=== PATIENT | female | born 1945 | race Caucasian/White ===

== ENCOUNTER 2016-10-02 14:11 | Emergency (ER) | payer OTHER ==
[~2016-10-02] VITALS: Ht 152.4 cm; Wt 56.0 kg
[~2016-10-02 14:11] MED LIST: ACCUPRIL10 MG PO; ADVAIR HFA120 INHALA IH; ALPRAZOLAM0.25 MG PO; ANALGESIC325 MG PO; ASPIR-MOX 325325 M1 PO; ASPIRIN325 MG PO; AZITHROMYCIN500 M1 PO; CALCIUM 500 +1 EACH PO; CENTRUM SILVER1 EAC3 PO; CIPRO500 MG PO; DUONEB 2.5-0.5 M3 ML AEROSOL; DUONEB 2.5-0.5 M3 ML IH; ECOTRIN325 MG PO; FLEXERIL10 MG PO; GABAPENTIN300 MG PO; GLUCOPHAGE500 MG PO; Glucophage PO; INDOCIN25 MG PO; LISINOPRIL10 MG PO; METFORMIN HCL500 MG PO; MOTRIN600 MG PO; MOTRIN800 MG PO; NORCO 5/3251 TABLET PO; PERCOCET 5/31 TABLET PO; PRAVACHOL80 MG PO; PRAVASTATIN SOD80 MG PO; PREDNISONE10 MG PO; PREDNISONE50 MG PO; THERAGRAN1 TABLET PO; TYLENOL WITH C1 EACH PO; VENTOLIN HFA18 GM IH; ZANTAC150 MG PO; ZANTAC300 MG PO; ZITHROMAX250 MG PO
[2016-10-02] MEDS ORDERED: DUONEB 2.5-0.5 M3 ML AEROSOL (15:10)
[2016-10-02 15:53] LABS: HEMATOCRIT 45.2 % (36.0-46.0); MCH 30.6 PG (29.0-34.0); MCHC 34.3 G/DL (30.0-36.0); MCV 89.3 FL (83-99); MEAN PLAT.VOLUME 10.4 uM^3 (9.5-12.4); PLATELET COUNT 179 K/uL (156-360); RBC DIS.WIDTH-CV 13.2 % (11.8-14.6); RED BLOOD COUNT 5.06 M/uL (3.80-5.20); WHITE BLOOD COUNT 10.6 K/uL (4.1-10.2)
[2016-10-02 16:06] LABS: CHLORIDE 107 mEq/L (99-109); POTASSIUM 3.9 mEq/L (3.7-5.4); SODIUM 137 mEq/L (136-147)
[2016-10-02 16:09] LABS: GLUCOSE 201 mg/dL (70-99)
[2016-10-02 16:10] LABS: ANION GAP 10 MEQ/L (2-14)
[2016-10-02 16:11] LABS: TOTAL BILIRUBIN 0.3 mg/dL (0.0-1.0)
[2016-10-02 16:12] LABS: ALKALINE PHOSPHATASE 73 IU/L (3-129); GFR ESTIMATE (CALCULATED) > 59 mL/min/
[2016-10-02 16:13] LABS: UREA NITROGEN (BUN) 14 mg/dL (9-23)
[2016-10-02 16:21] LABS: TROP-I INTERPRETATION NEGATIVE; TROPONIN-I < 0.01 ng/mL (0.0-0.30)
[2016-10-02 16:24] LABS: ADD MIUA? YES; BILIRUBIN NEGATIVE; BLOOD NEGATIVE; COLOR YELLOW ((YELLOW)); GLUCOSE (STRIP) 50; KETONES NEGATIVE; LEUKOCYTES LARGE; NITRITE NEGATIVE; PROTEIN (STRIP) NEGATIVE; SPECIFIC GRAVITY 1.018 (1.000-1.030); UROBILINOGEN 0.2 MG/DL (0.2-1.0)
[2016-10-02 16:29] LABS: LIPASE 18 U/L (1.0-51.0)
[2016-10-02 16:33] LABS: BACTERIA RARE /HPF; EPITHELIAL CELLS 2+ /HPF; MUCUS TRACE /LPF; RED BLOOD CELLS 20-30 /HPF (0-5); UCUL ADDED? YES; UNCLASSIFIED CRYSTALS 1+ /HPF; WHITE BLOOD CELLS TNTC /HPF (0-5)
[2016-10-02] MEDS ORDERED: BACTRIM,SEPT1 TABLET PO (17:29)
[2016-10-02 17:56] VITALS: BP 126/69
== END 2016-10-02 17:57 | disposition home or self-care (01) ==
LOC: EME 14:11
PROVIDERS: Nurse Practitioner Family
DX: K59.00 Constipation, unspecified (principal); N39.0 Urinary tract infection, site not specified; Z87.442 Personal history of urinary calculi; K21.9 Gastro-esophageal reflux disease without esophagitis; J45.909 Unspecified asthma, uncomplicated; I10 Essential (primary) hypertension; E78.5 Hyperlipidemia, unspecified; I25.2 Old myocardial infarction; F17.200 Nicotine dependence, unspecified, uncomplicated
CPT/HCPCS: 71020; 74177; 80053; 81003; 83690; 84484; 85027; 87086; 93005; 99281; 99284; J3010; J7030

== ENCOUNTER 2016-10-05 15:18 | Emergency (ER) | payer OTHER ==
[~2016-10-05] VITALS: Ht 152.4 cm; Wt 52.6 kg
[~2016-10-05 15:18] MED LIST changes: +BACTRIM,SEPT1 TABLET PO
[2016-10-05 16:50] LABS: BASOPHIL COUNT 0.1 K/uL (0-0.1); EOSINOPHIL (%) 1.4 % (0-5); EOSINOPHIL COUNT 0.1 K/uL (0-0.3); HEMATOCRIT 43.1 % (36.0-46.0); IMMATURE GRANULOCYTE (%) 0.3 % (0.0-0.7); INSTRUMENT ABS NEUTROPHIL CT 7.6 K/uL; LYMPHOCYTE COUNT 1.6 K/uL (1.0-2.8); MCH 30.5 PG (29.0-34.0); MCHC 33.9 G/DL (30.0-36.0); MEAN PLAT.VOLUME 10.6 uM^3 (9.5-12.4); MONOCYTE (%) 4.7 % (3-12); MONOCYTE COUNT 0.5 K/uL (0-0.8); NEUTROPHIL (%) 77.1 % (45-76); NEUTROPHIL COUNT 7.6 K/uL (1.8-6.4); PLATELET COUNT 168 K/uL (156-360); RBC DIS.WIDTH-CV 13.4 % (11.8-14.6); RBC DIS.WIDTH-SD 44.4 % (39-53); RED BLOOD COUNT 4.79 M/uL (3.80-5.20); WHITE BLOOD COUNT 9.9 K/uL (4.1-10.2)
[2016-10-05 16:59] LABS: CHLORIDE 104 mEq/L (99-109); POTASSIUM 4.2 mEq/L (3.7-5.4); SODIUM 135 mEq/L (136-147)
[2016-10-05 17:01] LABS: GLUCOSE 203 mg/dL (70-99)
[2016-10-05 17:02] LABS: ANION GAP 7 MEQ/L (2-14)
[2016-10-05 17:05] LABS: GFR ESTIMATE (CALCULATED) > 59 mL/min/; UREA NITROGEN (BUN) 8 mg/dL (9-23)
[2016-10-05 17:12] LABS: TROP-I INTERPRETATION NEGATIVE; TROPONIN-I < 0.01 ng/mL (0.0-0.30)
[2016-10-05 18:33] LABS: ADD MIUA? YES; BILIRUBIN NEGATIVE; BLOOD SMALL; COLOR YELLOW ((YELLOW)); GLUCOSE (STRIP) 50; KETONES NEGATIVE; LEUKOCYTES LARGE; NITRITE NEGATIVE; PROTEIN (STRIP) 30; SPECIFIC GRAVITY 1.006 (1.000-1.030); UROBILINOGEN 0.2 MG/DL (0.2-1.0)
[2016-10-05 18:52] LABS: BACTERIA RARE /HPF; BUDDING YEAST 2+; EPITHELIAL CELLS 3+ /HPF; MUCUS TRACE /LPF; RED BLOOD CELLS 20-30 /HPF (0-5); WHITE BLOOD CELLS TNTC /HPF (0-5)
[2016-10-05] MEDS ORDERED: NORCO 5/3251 TABLET PO (19:07)
[2016-10-05] MEDS ORDERED: LEVAQUIN500 MG PO (19:07)
[2016-10-05 19:33] VITALS: BP 143/76
== END 2016-10-05 19:33 | disposition home or self-care (01) ==
LOC: EME 15:18
PROVIDERS: Emergency Medicine
DX: N39.0 Urinary tract infection, site not specified (principal); K21.9 Gastro-esophageal reflux disease without esophagitis; E78.5 Hyperlipidemia, unspecified; I10 Essential (primary) hypertension; I25.2 Old myocardial infarction; F17.200 Nicotine dependence, unspecified, uncomplicated; Z87.442 Personal history of urinary calculi
CPT/HCPCS: 80048; 81003; 84484; 85025; 99281; 99284; J1885; J7030

== ENCOUNTER 2017-01-14 11:56 | Emergency (ER) | payer OTHER ==
[~2017-01-14] VITALS: Ht 152.4 cm; Wt 56.6 kg
[~2017-01-14 11:56] MED LIST changes: +LEVAQUIN500 MG PO
[2017-01-14 12:56] LABS: ADD MIUA? YES; BILIRUBIN NEGATIVE; BLOOD SMALL; GLUCOSE (STRIP) >=500; KETONES NEGATIVE; LEUKOCYTES LARGE; NITRITE NEGATIVE; PROTEIN (STRIP) NEGATIVE; SPECIFIC GRAVITY 1.012 (1.000-1.030); UROBILINOGEN 0.2 MG/DL (0.2-1.0)
[2017-01-14 12:57] LABS: COLOR DK YELLOW ((YELLOW))
[2017-01-14 13:03] LABS: BACTERIA RARE /HPF; EPITHELIAL CELLS 1+ /HPF; HYALINE CASTS 0-5 /LPF; MUCUS TRACE /LPF; RED BLOOD CELLS 15-20 /HPF (0-5); UCUL ADDED? YES; UNCLASSIFIED CASTS 0-5 /LPF; WHITE BLOOD CELLS 30-40 /HPF (0-5)
[2017-01-14 13:09] LABS: HEMATOCRIT 43.1 % (36.0-46.0); MCH 31.1 PG (29.0-34.0); MCHC 33.9 G/DL (30.0-36.0); MCV 91.7 FL (83-99); MEAN PLAT.VOLUME 10.2 uM^3 (9.5-12.4); PLATELET COUNT 193 K/uL (156-360); RBC DIS.WIDTH-SD 44.1 % (39-53); WHITE BLOOD COUNT 9.8 K/uL (4.1-10.2)
[2017-01-14 13:18] LABS: CHLORIDE 107 mEq/L (99-109); POTASSIUM 4.2 mEq/L (3.7-5.4); SODIUM 138 mEq/L (136-147)
[2017-01-14 13:20] LABS: GLUCOSE 190 mg/dL (70-99)
[2017-01-14 13:21] LABS: ANION GAP 9 MEQ/L (2-14)
[2017-01-14 13:22] LABS: TOTAL BILIRUBIN 0.3 mg/dL (0.0-1.0)
[2017-01-14 13:23] LABS: ALKALINE PHOSPHATASE 87 IU/L (3-129)
[2017-01-14 13:24] LABS: GFR ESTIMATE (CALCULATED) > 59 mL/min/
[2017-01-14 13:25] LABS: UREA NITROGEN (BUN) 13 mg/dL (9-23)
[2017-01-14] MEDS ORDERED: KEFLEX500 MG PO (17:36)
[2017-01-14 18:00] VITALS: BP 102/82
[2017-01-14 19:14] LABS: LIPASE 33 U/L (1.0-51.0)
== END 2017-01-14 18:00 | disposition home or self-care (01) ==
LOC: EME 11:56
DX: N39.0 Urinary tract infection, site not specified (principal); I70.0 Atherosclerosis of aorta; E11.9 Type 2 diabetes mellitus without complications; Z79.84 Long term (current) use of oral hypoglycemic drugs; F17.200 Nicotine dependence, unspecified, uncomplicated; Z71.6 Tobacco abuse counseling; J45.909 Unspecified asthma, uncomplicated; K21.9 Gastro-esophageal reflux disease without esophagitis; I25.2 Old myocardial infarction; F32.9 Major depressive disorder, single episode, unspecified; F41.9 Anxiety disorder, unspecified; Z87.442 Personal history of urinary calculi; Z95.5 Presence of coronary angioplasty implant and graft
CPT/HCPCS: 74174; 80053; 81003; 83690; 85027; 87086; 99281; 99285; J7030

== ENCOUNTER 2017-05-11 00:09 | Emergency (ER) | payer OTHER ==
[~2017-05-11] VITALS: Ht 152.4 cm; Wt 54.8 kg
[~2017-05-11 00:09] MED LIST changes: +KEFLEX500 MG PO
[2017-05-11 00:50] LABS: BASOPHIL (%) 0.6 % (0-1); BASOPHIL COUNT 0.1 K/uL (0-0.1); EOSINOPHIL COUNT 0.3 K/uL (0-0.3); HEMATOCRIT 44.8 % (36.0-46.0); HEMOGLOBIN 15.5 G/DL (11.9-15.5); IMMATURE GRANULOCYTE (%) 0.3 % (0.0-0.7); LYMPHOCYTE COUNT 2.6 K/uL (1.0-2.8); MCH 31.1 PG (29.0-34.0); MCHC 34.6 G/DL (30.0-36.0); MCV 89.8 FL (83-99); MONOCYTE COUNT 0.6 K/uL (0-0.8); NEUTROPHIL (%) 75.1 % (45-76); NEUTROPHIL COUNT 10.6 K/uL (1.8-6.4); PLATELET COUNT 185 K/uL (156-360); RBC DIS.WIDTH-CV 12.5 % (11.8-14.6); RBC DIS.WIDTH-SD 41.2 % (39-53); RED BLOOD COUNT 4.99 M/uL (3.80-5.20); WHITE BLOOD COUNT 14.2 K/uL (4.1-10.2)
[2017-05-11 01:00] LABS: ALBUMIN 3.8 g/dL (3.2-4.8); CHLORIDE 103 mEq/L (99-109); POTASSIUM 3.4 mEq/L (3.7-5.4); SODIUM 137 mEq/L (136-147)
[2017-05-11 01:02] LABS: GLUCOSE 200 mg/dL (70-99)
[2017-05-11 01:03] LABS: TOTAL PROTEIN 6.6 g/dL (6.4-8.3)
[2017-05-11 01:04] LABS: TOTAL BILIRUBIN 0.3 mg/dL (0.0-1.0)
[2017-05-11 01:06] LABS: ALKALINE PHOSPHATASE 97 IU/L (3-129); CREATININE 0.8 mg/dL (0.6-1.3); GFR ESTIMATE (CALCULATED) > 59 mL/min/
[2017-05-11 01:07] LABS: UREA NITROGEN (BUN) 12 mg/dL (9-23)
[2017-05-11 01:08] LABS: AST (GOT) 16 IU/L (2-34)
[2017-05-11 01:09] LABS: ALT (GPT) 18 IU/L (3-49); LIPASE 10 U/L (1.0-51.0)
[2017-05-11] MEDS ORDERED: LEVAQUIN750 MG PO (01:52)
[2017-05-11] MEDS ORDERED: FLAGYL500 MG PO (01:52)
[2017-05-11] MEDS ORDERED: ZOFRAN4 MG PO (01:52)
[2017-05-11] MEDS ORDERED: PERCOCET 5/31 TABLET PO (01:52)
[2017-05-11 01:54] LABS: APPEARANCE CLEAR ((CLEAR)); BILIRUBIN NEGATIVE; BLOOD SMALL; COLOR AMBER ((YELLOW)); GLUCOSE (STRIP) NEGATIVE; KETONES NEGATIVE; LEUKOCYTES MODERATE; NITRITE POSITIVE; PROTEIN (STRIP) NEGATIVE; SPECIFIC GRAVITY 1.006 (1.000-1.030)
[2017-05-11 01:58] LABS: BACTERIA NONE SEEN /HPF; EPITHELIAL CELLS 1+ /HPF; MUCUS TRACE /LPF; UCUL ADDED? YES
[2017-05-11 02:42] VITALS: BP 168/95
== END 2017-05-11 02:43 | disposition home or self-care (01) ==
LOC: EME 00:09
PROVIDERS: Emergency Medicine
DX: K57.32 Diverticulitis of large intestine without perforation or abscess without bleeding (principal); I71.4 Abdominal aortic aneurysm, without rupture; I10 Essential (primary) hypertension; E78.5 Hyperlipidemia, unspecified; E11.9 Type 2 diabetes mellitus without complications; Z79.84 Long term (current) use of oral hypoglycemic drugs; I25.2 Old myocardial infarction; Z95.5 Presence of coronary angioplasty implant and graft; Z79.82 Long term (current) use of aspirin; Z87.442 Personal history of urinary calculi; F17.200 Nicotine dependence, unspecified, uncomplicated
CPT/HCPCS: 74177; 80053; 81003; 83605; 83690; 85025; 87086; 99281; 99284; J2405; J3010; J7030

== ENCOUNTER 2017-07-15 09:59 | Inpatient (IN) | payer OTHER ==
[~2017-07-15] VITALS: Ht 149.9 cm; Wt 49.5 kg
[~2017-07-15 09:59] MED LIST changes: +FLAGYL500 MG PO; +GLUCOPHAGE1000 MG PO; +LEVAQUIN750 MG PO; -LISINOPRIL10 MG PO; -METFORMIN HCL500 MG PO; +PRINIVIL20 MG PO; +ZOFRAN4 MG PO
[2017-07-15 10:26] LABS: CARBON DIOXIDE (BICARBONATE) 24.1 MEQ/L (20-31)
[2017-07-15 10:34] LABS: BASOPHIL (%) 0.9 % (0-1); BASOPHIL COUNT 0.1 K/uL (0-0.1); EOSINOPHIL (%) 1.5 % (0-5); EOSINOPHIL COUNT 0.2 K/uL (0-0.3); HEMATOCRIT 48.5 % (36.0-46.0); HEMOGLOBIN 17.1 G/DL (11.9-15.5); IMMATURE GRANULOCYTE (%) 0.3 % (0.0-0.7); LYMPHOCYTE (%) 24.1 % (15-42); LYMPHOCYTE COUNT 2.8 K/uL (1.0-2.8); MCH 31.1 PG (29.0-34.0); MCHC 35.3 G/DL (30.0-36.0); MCV 88.3 FL (83-99); MONOCYTE (%) 5.5 % (3-12); MONOCYTE COUNT 0.6 K/uL (0-0.8); NEUTROPHIL (%) 67.7 % (45-76); NEUTROPHIL COUNT 7.8 K/uL (1.8-6.4); PLATELET COUNT 205 K/uL (156-360); RBC DIS.WIDTH-CV 13.4 % (11.8-14.6); RBC DIS.WIDTH-SD 43.2 % (39-53); RED BLOOD COUNT 5.49 M/uL (3.80-5.20); WHITE BLOOD COUNT 11.5 K/uL (4.1-10.2)
[2017-07-15 10:35] LABS: ALBUMIN 4.4 g/dL (3.2-4.8); CHLORIDE 98 mEq/L (99-109); POTASSIUM 4.6 mEq/L (3.7-5.4); SODIUM 135 mEq/L (136-147)
[2017-07-15 10:36] LABS: MAGNESIUM 1.9 mg/dL (1.3-2.7)
[2017-07-15 10:38] LABS: TOTAL PROTEIN 7.4 g/dL (6.4-8.3)
[2017-07-15 10:40] LABS: TOTAL BILIRUBIN 0.6 mg/dL (0.0-1.0)
[2017-07-15 10:41] LABS: ALKALINE PHOSPHATASE 128 IU/L (3-129)
[2017-07-15 10:42] LABS: CREATININE 1.2 mg/dL (0.6-1.3); GFR ESTIMATE (CALCULATED) 47 mL/min/
[2017-07-15 10:43] LABS: AST (GOT) 14 IU/L (2-34); UREA NITROGEN (BUN) 20 mg/dL (9-23)
[2017-07-15 10:44] LABS: ALT (GPT) 23 IU/L (3-49); GLUCOSE 733 mg/dL (70-99)
[2017-07-15 10:55] LABS: TROP-I INTERPRETATION NEGATIVE; TROPONIN-I < 0.01 ng/mL (0.0-0.30)
[2017-07-15 12:00] LABS: APPEARANCE SL.HAZY ((CLEAR)); BILIRUBIN NEGATIVE; BLOOD NEGATIVE; COLOR YELLOW ((YELLOW)); GLUCOSE (STRIP) >=500; KETONES 5; LEUKOCYTES NEGATIVE; NITRITE NEGATIVE; PROTEIN (STRIP) NEGATIVE; SPECIFIC GRAVITY 1.029 (1.000-1.030); UROBILINOGEN 0.2 MG/DL (0.2-1.0)
[2017-07-15 12:08] LABS: BACTERIA NONE SEEN /HPF; EPITHELIAL CELLS 1+ /HPF; MUCUS TRACE /LPF; RED BLOOD CELLS 0-5 /HPF (0-5); UCUL ADDED? NO; WHITE BLOOD CELLS 0-5 /HPF (0-5)
[2017-07-15 13:11] LABS: CARBON DIOXIDE (BICARBONATE) 23.9 MEQ/L (20-31)
[2017-07-15 13:22] LABS: POTASSIUM 5.3 mEq/L (3.7-5.4)
[2017-07-15 13:23] LABS: CHLORIDE 112 mEq/L (99-109); SODIUM 143 mEq/L (136-147)
[2017-07-15 13:25] LABS: GLUCOSE 199 mg/dL (70-99)
[2017-07-15 13:28] LABS: CREATININE 0.8 mg/dL (0.6-1.3); GFR ESTIMATE (CALCULATED) > 59 mL/min/
[2017-07-15 13:29] LABS: UREA NITROGEN (BUN) 17 mg/dL (9-23)
[2017-07-15] MEDS ORDERED: NEURONTIN600 MG PO (15:15)
[2017-07-15 18:31] VITALS: BP 133/68
[2017-07-15 20:54] LABS: TROP-I INTERPRETATION NEGATIVE; TROPONIN-I < 0.01 ng/mL (0.0-0.30)
[2017-07-15 23:57] VITALS: BP 114/58
[2017-07-16 02:41] LABS: TROP-I INTERPRETATION NEGATIVE; TROPONIN-I < 0.01 ng/mL (0.0-0.30)
[2017-07-16 03:58] VITALS: BP 127/60
[2017-07-16 07:39] VITALS: BP 98/58
[2017-07-16 09:00] LABS: HEMATOCRIT 40.2 % (36.0-46.0); MCH 30.9 PG (29.0-34.0); MCHC 34.8 G/DL (30.0-36.0); MCV 88.7 FL (83-99); PLATELET COUNT 154 K/uL (156-360); RBC DIS.WIDTH-CV 13.5 % (11.8-14.6); RBC DIS.WIDTH-SD 43.8 % (39-53); RED BLOOD COUNT 4.53 M/uL (3.80-5.20); WHITE BLOOD COUNT 8.9 K/uL (4.1-10.2)
[2017-07-16 09:11] LABS: CHLORIDE 105 MEQ/L (99-109); CREATININE 0.7 MG/DL (0.6-1.3); GFR ESTIMATE (CALCULATED) > 59 mL/min/; GLUCOSE 257 mg/dL (70-99); POTASSIUM 4.5 MEQ/L (3.7-5.4); SODIUM 136 MEQ/L (136-147); UREA NITROGEN (BUN) 12 mg/dL (9-23)
[2017-07-16 11:11] LABS: HEMOGLOBIN A1c (GLYCOHEMOGLOB) 13.2 % (Below 5.7)
[2017-07-16 12:15] VITALS: BP 106/65
[2017-07-16 16:33] VITALS: BP 123/87
[2017-07-16 22:07] VITALS: BP 110/56
[2017-07-17 00:10] VITALS: BP 134/66
[2017-07-17 04:38] VITALS: BP 113/58
[2017-07-17 06:14] LABS: BASOPHIL (%) 0.8 % (0-1); BASOPHIL COUNT 0.1 K/uL (0-0.1); EOSINOPHIL (%) 3.6 % (0-5); EOSINOPHIL COUNT 0.4 K/uL (0-0.3); HEMATOCRIT 44.6 % (36.0-46.0); HEMOGLOBIN 14.8 G/DL (11.9-15.5); IMMATURE GRANULOCYTE (%) 0.3 % (0.0-0.7); LYMPHOCYTE (%) 42.4 % (15-42); LYMPHOCYTE COUNT 4.4 K/uL (1.0-2.8); MCH 29.5 PG (29.0-34.0); MCHC 33.2 G/DL (30.0-36.0); MCV 88.8 FL (83-99); MONOCYTE (%) 4.6 % (3-12); MONOCYTE COUNT 0.5 K/uL (0-0.8); NEUTROPHIL (%) 48.3 % (45-76); PLATELET COUNT 178 K/uL (156-360); RBC DIS.WIDTH-CV 13.4 % (11.8-14.6); RBC DIS.WIDTH-SD 43.7 % (39-53); RED BLOOD COUNT 5.02 M/uL (3.80-5.20); WHITE BLOOD COUNT 10.4 K/uL (4.1-10.2)
[2017-07-17 06:40] LABS: CHLORIDE 105 MEQ/L (99-109); CREATININE 0.6 MG/DL (0.6-1.3); GFR ESTIMATE (CALCULATED) > 59 mL/min/; POTASSIUM 4.2 MEQ/L (3.7-5.4); SODIUM 138 MEQ/L (136-147); UREA NITROGEN (BUN) 16 mg/dL (9-23)
[2017-07-17 06:43] LABS: GLUCOSE 114 mg/dL (70-99)
[2017-07-17 07:21] VITALS: BP 136/68
[2017-07-17 10:53] VITALS: BP 118/59
[2017-07-17] MEDS ORDERED: NICOTINE PATCH1 EAC2 TD (13:26)
[2017-07-17] MEDS ORDERED: PROAIR RESPICL90 MCG IH (13:26)
[2017-07-17] MEDS ORDERED: LEVEMIR100 UNIT/2 SC (13:28)
[2017-07-17] MEDS ORDERED: LANCETS1 EACH MC (13:30)
[2017-07-17] MEDS ORDERED: TEST STRIPS MC (13:30)
== END 2017-07-17 15:07 | disposition home or self-care (01) | DRG 638 ==
LOC: EME 09:59 → EDOF 13:56 → ENRESERV 14:08 → 5WEST 18:16
PROVIDERS: Emergency Medicine; Internal Medicine
DX: E11.65 Type 2 diabetes mellitus with hyperglycemia (principal); E87.2 Acidosis; E86.0 Dehydration; F17.210 Nicotine dependence, cigarettes, uncomplicated; J44.9 Chronic obstructive pulmonary disease, unspecified; I10 Essential (primary) hypertension; E78.5 Hyperlipidemia, unspecified; K21.9 Gastro-esophageal reflux disease without esophagitis; I25.10 Atherosclerotic heart disease of native coronary artery without angina pectoris; I25.2 Old myocardial infarction; Z87.442 Personal history of urinary calculi; Z91.11 Patient's noncompliance with dietary regimen
CPT/HCPCS: 80048; 80048 91; 80053; 81003; 82010; 82803; 82948; 83036; 83735; 84484; 85025; 85027; 93005; 99202; 99281; 99284; G0378; J1650; J1815; J7030; J7120